=== PATIENT | male | born 1965 | race Caucasian/White ===

== ENCOUNTER 2020-01-24 09:17 | Outpatient (CLI) | payer OTHER ==
--- NOTE | 2020-01-24 11:35 | MRI ---
MRI LEFT SHOULDER PERFORMED WITHOUT CONTRAST ENHANCEMENT: Date: 01/24/2020 HISTORY: Left shoulder injury. COMPARISON: Plain film examination performed 12/21/2019. MRI study dated 02/14/2008. FINDINGS: The AC joint is unremarkable. The supraspinatus tendon appears to be intact. There is a partial undersurface tear of the insertion of the anteriormost fibers of the infraspinatus tendon. This is a very small focal area. It is mid-gr marty in this area, it is only 4-5 mm in width. There is suggestion that there may be some very subtle delamination with some minimal fluid extending towards the musculotendinous junction. There are tendinosis changes of the subscapularis tendon involving the superior fibers, and there may be a low grade undersurface tear associated with this. As the biceps tendon enters into the bicipita l groove, it appears to have a small split tear in this region. The bicipital labral complex appears intact. There are some edema changes in the rotator cuff interval and axillary pouch. Some minimal edema batista ge is also seen in the subacromial/subdeltoid recess. The posterior labrum has a slightly truncated free edge, probably related to more chronic change. IMPRESSION: 1. Edema changes in the axillary pouch and rotator cuff interval region which would suggest capsulit is. 2. Lower grade undersurface tear of the infraspinatus tendon as described above. 3. Focal split tear of the biceps tendon as it enters the bicipital groove. POS: KELLY
== END 2020-01-24 09:18 | disposition home or self-care (01) ==
LOC: BICMRI 09:17
PROVIDERS: ATTEND Family Medicine
DX: S49.92XD Unspecified injury of left shoulder and upper arm, subsequent encounter (principal); S46.812A Strain of other muscles, fascia and tendons at shoulder and upper arm level, left arm, initial encounter